=== PATIENT | female | born 1975 | race Hispanic/Latino ===

== ENCOUNTER 2017-08-29 10:37 | Emergency (ER) | payer BC, OTHER ==
[2017-08-29 11:06] VITALS: BMI 23.8
[2017-08-29 11:07] VITALS: BP 118/75; PULSE 77; RESP 18; TEMP 98; O2SAT 100
[2017-08-29] MEDS ORDERED: Sodium Chloride 0.9% 1,000 ML IV STA (11:43)
--- NOTE | 2017-08-29 11:43 | ED PDOC ---
HPI: Abdomen Time Seen by Provider: 08/29/17 11:22 Chief Complaint (Nursing): Abdominal Pain Chief Complaint (Provider): abd pain History Per: Patient Additional Complaint(s): 42-year-old female presents to emergency department with diffuse abdominal pain and diarrhea ongoing for 1 week. Patient was seen twice at her primary doctor's office and was given IVF each time. Fluids did help but patient woke up today feeling worse. She went back to her primary doctor and was told to come to ED for CT, fluids and labs. Patient denies any fever or chills. No dysuria. She denies any vomiting. She states last week diarrhea was complete liquid and now it is soft but still loose. PMD: [place] Past Medical History Reviewed: Historical Data, Nursing Documentation, Vital Signs Vital Signs: Last Vital Signs Temp 98 F 08/29/17 11:06 Pulse 77 08/29/17 11:06 Resp 18 08/29/17 11:06 BP 118/75 08/29/17 11:06 Pulse Ox 100 08/29/17 13:57 - Medical History PMH: Back Problems - Surgical History Surgical History: No Surg Hx - Family History Family History: States: No Known Family Hx - Living Arrangements Living Arrangements: With Family - Social History Current smoker - smoking cessation education provided: No Alcohol: None Drugs: Denies - Immunization History Hx Tetanus Toxoid Vaccination: No (not sure of last tetanus) - Home Medications Home Medications: Ambulatory Orders Medication Instructions Recorded Acetaminophen with Codeine 1 tab PO Q4 PRN #10 tab 03/27/14 [Tylenol with Codeine No. 3 300 mg-30 mg] Dicyclomine [Bentyl] 10 mg PO QID PRN #30 cap 08/29/17 - Allergies Allergies/Adverse Reactions: Allergies Allergy/AdvReac Type Severity Reaction Status Date / Time No Known Allergies Allergy Verified 03/27/14 19:25 Review of Systems ROS Statement: Except As Marked, All Systems Reviewed And Found Negative Constitutional: Negative for: Fever, Chills Respiratory: Negative for: Cough Gastrointestinal: Positive for: Abdominal Pain, Diarrhea. Negative for: Nausea , Vomiting, Constipation, Melena, Hematochezia, Hematemesis, Rectal Pain Genitourinary Female: Negative for: Dysuria Physical Exam - Reviewed Nursing Documentation Reviewed: Yes Vital Signs Reviewed: Yes - Physical Exam Appears: Positive for: Well, Non-toxic, No Acute Distress Skin: Negative for: Rash Eye Exam: Positive for: Normal appearance Cardiovascular/Chest: Positive for: Regular Rate, Rhythm Respiratory: Positive for: Normal Breath Sounds Gastrointestinal/Abdominal: Positive for: Tenderness (Mild diffuse tenderness in all 4 quadrants, no rebound or guarding). Negative for: Distended Back: Negative for: L CVA Tenderness, R CVA Tenderness Extremity: Positive for: Normal ROM Neurologic/Psych: Positive for: Alert, Oriented - Laboratory Results Result Diagrams: 08/29/17 11:48 08/29/17 11:48 Urine POC: Negative Urine dip results: Negative for: Leukocyte Esterase, Blood, Nitrate, Ketones, Glucose, Bilirubin, Protein - ECG O2 Sat by Pulse Oximetry: 100 Pulse Ox Interpretation: Normal - Other Rad CT abd and pelvis with IV contrast X-Ray: Read By Radiologist X-Ray Interpretation: see below Medical Decision Making Medical Decision Makin42 year old with abdominal pain and diarrhea Plan: CBC CMP Lipase Urine test Urine dip IVF CT abd and pelvis with IV contrast Stool culture Ova and Parasites C diff toxin CT: IMPRESSION: 1. 4.0 cm simple cyst in the right ovary and small amount of free fluid in the pelvis likely representing partial rupture of this cyst. 2. No acute abdominal or pelvic abnormality. 3. 2 mm nonobstructing stone in the interpolar region of the right kidney. Stool culture was sent. Patient is aware of all diagnostic testing results, all questions answered. Patient was advised to drink plenty of fluids and follow dietary instructions. She was instructed to follow up with compressor mechanic, referral provided. Rx bentyl given. Disposition - Clinical Impression Clinical Impression: Diarrhea - Patient ED Disposition Is Patient to be Admitted: No Counseled Patient/Family Regarding: Studies Performed, Diagnosis, Need For Followup, Rx Given - Disposition Referrals: [facility] [Provider Group] Adrian Ponce MD [Staff Provider] - Disposition: Routine/Home Disposition Time: 13:59 Condition: STABLE Additional Instructions: Follow bland diet and drink plenty of fluids. Follow up with primary care doctor or compressor mechanic. Prescriptions: Dicyclomine [Bentyl] 10 mg PO QID PRN #30 cap PRN Reason: Gi Distress Instructions: Diarrhea in Adolescents and Adults, [place] Diet Forms: [employer] ([place]) Results - Lab Results Lab Results: 08/29/17 08/29/17 11:48 11:48 WBC 9.0 RBC 4.37 Hgb 14.2 Hct 41.3 MCV 94.4 MCH 32.4 H MCHC 34.3 RDW 12.8 Plt Count 232 MPV 7.5 Neut % (Auto) 74.8 Lymph % (Auto) 16.5 L Wheeler % (Auto) 6.0 Eos % (Auto) 2.2 Baso % (Auto) 0.5 Neut # (Auto) 6.8 Lymph # (Auto) 1.5 Wheeler # (Auto) 0.5 Eos # (Auto) 0.2 Baso # (Auto) 0.0 Sodium 140 Potassium 4.4 Chloride 105 Carbon Dioxide 23 Anion Gap 16 BUN 9 Creatinine 0.6 L Est GFR ( Amer) > 60 Est GFR (Non-Af Amer) > 60 Random Glucose 97 Calcium 8.9 Total Bilirubin 0.4 AST 18 ALT 28 Alkaline Phosphatase 34 L Total Protein 7.5 Albumin 4.1 Globulin 3.3 Albumin/Globulin Ratio 1.2 Lipase 176
[2017-08-29 11:54] LABS: BASO % 0.5 % (0.0-2.0); EOS # 0.2 K/uL (0.0-0.7); EOS % 2.2 % (0.0-4.0); HEMOGLOBIN 14.2 g/dL (12.0-16.0); LYMPH # 1.5 K/uL (1.0-4.3); LYMPH % 16.5 % (20.0-40.0); MEAN CELL VOLUME 94.4 fl (81.0-99.0); MEAN CORPUSCULAR HEMOGLOBIN 32.4 pg (27.0-31.0); MEAN CORPUSCULAR HGB CONC 34.3 g/dL (33.0-37.0); MEAN PLATELET VOLUME 7.5 fl (7.2-11.7); MONO # 0.5 K/uL (0.0-0.8); NEUT # 6.8 K/uL (1.8-7.0); NEUT % 74.8 % (50.0-75.0); RBC 4.37 Mil/uL (3.80-5.20); RED CELL DISTRIBUTION WIDTH 12.8 % (11.5-14.5)
[2017-08-29 12:05] LABS: ALB/GLOB RATIO 1.2 (1.0-2.1); ALBUMIN 4.1 g/dL (3.5-5.0); ALT/SGPT 28 U/L (9-52); AST/SGOT 18 U/L (14-36); BLOOD UREA NITROGEN 9 mg/dl (7-17); CALCIUM 8.9 mg/dL (8.4-10.2); GFR AFRICAN-AMERICAN > 60; GFR NON-AFRICAN AMERICAN > 60; LIPASE 176 U/L (23-300)
[2017-08-29] MEDS ORDERED: Iohexol 300 100 ML IJ ONE (12:18)
[2017-08-29] MEDS ORDERED: Piperacillin/Tazobact 3.375 gm Inj IVPB ONE (12:22)
--- NOTE | 2017-08-29 13:22 | CT ---
PROCEDURE: CT Abdomen and Pelvis with contrast HISTORY: diarrhea, abdominal pain COMPARISON: None. TECHNIQUE: CT scan of the abdomen and pelvis was performed after intravenous administration of contrast. Oral contrast was not administered. Coronal and sagittal reformatted images were obtained. Contrast dose: 90 mL Omnipaque 300 Radiation dose: Total exam DLP = 501.08 mGy-cm. This CT exam was performed using one or more of the following dose reduction techniques: Automated exposure control, adjustment of the mA and/or kV according to patient size, and/or use of iterative reconstruction technique. FINDINGS: LOWER THORAX: There is dependent atelectasis in the lung bases. LIVER: There is mild hepatomegaly. There is a 8 mm faint enhancing lesion in the right inferior hepatic lobe which may represent a flash hemangioma. No ductal dilatation. GALLBLADDER AND BILE DUCTS: No calcified gallstones. PANCREAS: Normal in size with homogeneous enhancement. No gross lesion or ductal dilatation. SPLEEN: Normal in size and appearance. ADRENALS: No discrete nodule. KIDNEYS AND URETERS: Both kidneys are normal in size and there is homogeneous enhancement. No hydronephrosis. There is a 2 mm nonobstructing stone in the right interpolar region. VASCULATURE: No aortic aneurysm. BOWEL: The small bowel loops are normal in caliber. The colon is unremarkable. No bowel dilatation or obstruction. APPENDIX: Normal appendix. PERITONEUM: There is a small amount of free fluid in the pelvis. No free air. LYMPH NODES: No enlarged lymph nodes. BLADDER: Unremarkable. REPRODUCTIVE: The uterus is normal in size. There is a 4.4 x 4.0 cm simple cyst in the right adnexa. BONES: No acute fracture. Within normal limits for the patient's age. OTHER FINDINGS: None. IMPRESSION: 1. 4.0 cm simple cyst in the right ovary and small amount of free fluid in the pelvis likely representing partial rupture of this cyst. 2. No acute abdominal or pelvic abnormality. 3. 2 mm nonobstructing stone in the interpolar region of the right kidney.
== END 2017-08-29 14:43 | disposition home or self-care (01) ==
LOC: H.ER 10:37
DX: R10.9 Unspecified abdominal pain (principal); R19.7 Diarrhea, unspecified
CPT/HCPCS: 74177; 80053; 81025; 83690; 85025; 87045; 87177; 87209; 87230; 96360; 99283; J1885; J7040; Q9967